=== PATIENT | male | born 1960 | race Caucasian/White ===

== ENCOUNTER → 2020-01-22 11:30 | Outpatient (CLI) | payer BC, SELFPAY ==
--- NOTE | ~2020-01-22 | XR_ITS ---
EXAMINATION: XR patella RT, XR knee RT min 4V DATE: 01/22/2020 11:54 INDICATION: Right knee pain TECHNIQUE: 1. Weight bearing anteroposterior and Mccracken, sunrise, and flexed lateral views of the right knee were obtained 2. Frontal view of the right patella was obtained. COMPARISON: None. FINDINGS: Alignment is normal. No fracture. Joint spaces are normal. No osteophytosis, erosions, osteonecrosis or other cortical irregularity's. No joint effusion/layering lipohemarthrosis. Soft tissues are unre markable. IMPRESSION: 1. Normal right knee and patella radiographs. Reviewed, dictated and finalized at location A. IMPRESSION: 1. Normal right knee and patella radiographs.
== END ==
PROVIDERS: PCP Internal Medicine; Visit Provider Internal Medicine
DX: M25.561 Pain in right knee (principal)
CPT/HCPCS: 73560; 73564

== ENCOUNTER 2020-03-18 07:40 | Outpatient (RCR) | payer BC, SELFPAY ==
--- NOTE | 2020-03-18 07:51 | PTOPEVAL ---
Thank you for referring Armando Martinez to [facility].? The patient is scheduled to be seen for therapy? ____x/week for ___ weeks. Please review, sign, date and return this plan of care RUBIO. I agree with and certify that the following plan of care is medically necessary. Referring Physician Date Admitting Provider: Attending Provider: Seun Hector MD Referring Provider: *PT Outpatient Evaluation Start: 03/18/20 07:10 Freq: Status: Active Protocol: Document 03/18/20 07:10 Disha (Rec: 03/18/20 07:51 [facility] [id number]) Therapy Assessment Status Assessment Status Assessment Status Evaluation Evaluation Information Problem Diagnosis R knee pain, pes anserine/ patellar bursitis Onset 03/17/20 Subjective Information patient reports pain in the R Query Text:As Reported By Patient/ knee for several years on and Family off. he reports lately he has had more pain than usual. he reports he had x-rays taken back in january. he reports he saw an ortho yesterday. he reports he had an injection to the R knee. he reports he has increased pain in the R knee with keneling on the knee. he reports he also has increased pain with stepping onto a stool or step. 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 Prior Level of Function Comments Additional Prior Level of Function patient reports he has been Comments getting worse for a few months now. he reports increased aching in the r knee. Pain Assessment Timing of Pain Assessment Timing of Pain Assessment Assessment Pain Scale Pain Scale Used Numeric (1 - 10) Self Report Pain Assessment Right Knee(s) Reported Pain Level 3 Pain Frequency Acute,Chronic,Continuous Lowest Pain Intensity 2 Greatest Pain Intensity 10 Pain Score Pain Score 3: Self Report Additional Pain Score Comments patient reports soreness since his injection yesterday. Interventions Used Interventions Used By Clinicians Activity or ADL's,Education, Exercise,Manual Therapy Techniques Lower Extremity Range of Motion Knee Range of Motion Bilateral Knee Flexion Range of Motion - Active 140 Knee Extension Range of Motion - Active 0
== END 2020-04-17 08:33 | disposition home or self-care (01) ==
LOC: CHSPT 07:40
PROVIDERS: Visit Provider Orthopaedic Surgery
DX: M76.891 Other specified enthesopathies of right lower limb, excluding foot (principal)
CPT/HCPCS: 97014; 97035; 97110; 97140; 97161; 97530; 97542; G0283

== ENCOUNTER 2020-04-20 14:14 | Outpatient (CLI) | payer BC, SELFPAY ==
[2020-04-20 15:25] LABS: SARS-CoV-2 Ag Positive (Negative)
== END 2020-04-20 14:15 | disposition home or self-care (01) ==
LOC: CHSLAB 14:16
PROVIDERS: PCP Internal Medicine; Visit Provider Internal Medicine
DX: U07.1 COVID-19 (principal)
CPT/HCPCS: 87426

== ENCOUNTER 2021-01-29 00:52 | Day surgery (SDC) | payer BC, SELFPAY ==
[2021-01-19 10:29] VITALS: BMI 26.6
[2021-01-29 06:23] VITALS: BP 127/79; PULSE 58; RESP 21; TEMP 36.3; O2SAT 99; BMI 26.8
[2021-01-29] MEDS: LACTATED RINGERS 1,000 ML 150 ML IV CONT (06:36)
--- NOTE | 2021-01-29 07:22 | P.PNAN_ITS ---
Anes - Initial Pre Proc Eval Procedure: Operation Date: 01/29/21 07:30 Proposed Procedures p Screening Colonoscopy - Dougie Rivera MD Date/Time: 01/29/21 07:22 Surgeon: Dougie Rivera MD Pre Op Diagnosis: neoplasm screening Patient Data Age: 60 Gender: M Height: 1.75 m Weight: 82.4 kg Last Vital Signs Temp 97.3 F L 01/29/21 06:23 Pulse 58 L 01/29/21 06:23 Resp 21 H 01/29/21 06:23 BP 127/79 01/29/21 06:23 Pulse Ox 99 01/29/21 06:23 Allergies Allergy/AdvReac Type Severity Reaction Status Date / Time No Known Allergies Allergy Verified 01/19/21 10:28 Home Medications Medication Instructions Recorded Confirmed Type aspirin 81 mg tablet,delayed 81 mg PO DAILY #30 tablet 05/20/19 01/19/21 Rx release atorvastatin 40 mg tablet 40 mg PO DAILY 90 Days #90 tablet 11/12/20 01/19/21 Rx propylthiouracil 50 mg tablet 50 mg RECTAL BID 90 Days #180 11/12/20 01/19/21 Rx tablet telmisartan 40 mg tablet 40 mg PO DAILY 90 Days #90 tablet 11/12/20 01/19/21 Rx Patient hx anesthesia problems: none Family hx anesthesia problems: none Results Review: All pre-operative results and documents have been reviewed as part of the pre-operative evaluation. FORMERLY [facility], [facility]–1983 Past Medical History Medical History (Updated 11/12/20 @ 15:02 by Dot Salgado DO) Essential (primary) hypertension Hyperthyroidism Routine adult health maintenance Vision abnormalities Family History Family History Father Family history of malignant neoplasm Alcoholic Mother Family history of type 2 diabetes mellitus Hypertension Sibling Alcoholic Hypertension Depression Son Multiple sclerosis Other Diabetes mellitus Family history of arthritis Social History Social History Years smoked: 20 Smoking status: Former smoker Tobacco type: cigarettes Second hand tobacco smoke exposure: No Smoking end date: 05/08/12 Alcohol intake: current Drinks per week: 4 Alcohol use details: beer Substance use: never Substance use type: does not use Living arrangements: with family Gender identity (if verbalized by the patient): Male Spiritual care concerns: No Agree to blood products: Yes Anes - Eval Final PreProcedure Day of Procedure 01/29/21 07:22 Patient weight: overweight Heart: regular rate and rhythm Lungs: clear to auscultation Airway: Mallampati scale class II Neurological: alert and oriented Last oral intake: >/= 8 hours ASA classification: II Emergent: no Anesthetic plan: proceed Anesthesia type and monitoring: general GIVS and standard monitoring Results Review: All pre-operative results and documents have been reviewed as part of the pre-operative evaluation. Informed Consent: The patient's anesthetic plan and its attendant risks and benefits were discussed with the patient/family/POA. Questions were solicited an d answers provided to the satisfaction of the patient/family/POA.
--- NOTE | 2021-01-29 07:31 | PM.HPGS ---
History of Present Illness History of Present Illness Consent: Risks, benefits, and alternatives have been discussed and questions answered. Patient agrees to proceed with procedure. Chief complaint: neoplasm screening Narrative: Armando Martinez is a 60 year old male here for first screening colonoscopy Review of Systems Constitutional: Constitutional: Denies headache(s) and Denies weakness Eyes: Eyes: Denies blurry vision ENT: Reports Normal hearing present, Denies headache(s) and Denies neck pain Cardiovascular: Cardiovascular: Denies chest pain and Denies dyspnea Respiratory: Respiratory: Denies dyspnea Gastrointestinal: Gastrointestinal: Reports no additional gastrointestinal complaints Genitourinary: Genitourinary: Denies dysuria Musculoskeletal: Musculoskeletal: Denies neck pain Integumentary/Breasts: Skin/Breast: Denies dry skin Neurologic: Reports Normal hearing present, Denies headache(s) and Denies weakness Psychiatric: Psychiatric: Denies anxiety Endocrine: Endocrine: Denies change in body appearance Hematologic/Lymphatic: Hematologic/Lymphatic: Denies easy bleeding Allergic/Immunologic: Allergic/Immunologic: Denies urticaria PMF Past Medical History Medical History (Updated 11/12/20 @ 15:02 by Dot Salgado DO) Essential (primary) hypertension Hyperthyroidism Routine adult health maintenance Vision abnormalities Family History Family History Father Family history of malignant neoplasm Alcoholic Mother Family history of type 2 diabetes mellitus Hypertension Sibling Alcoholic Hypertension Depression Son Multiple sclerosis Other Diabetes mellitus Family history of arthritis Social History Social History Years smoked: 20 Smoking status: Former smoker Tobacco type: cigarettes Second hand tobacco smoke exposure: No Smoking end date: 05/08/12 Alcohol intake: current Drinks per week: 4 Alcohol use details: beer Substance use: never Substance use type: does not use Living arrangements: with family Gender identity (if verbalized by the patient): Male Spiritual care concerns: No Agree to blood products: Yes Meds Home Medications and Allergies Home Medications Medication Instructions Recorded Confirmed Type aspirin 81 mg tablet,delayed 81 mg PO DAILY #30 tablet 05/20/19 01/19/21 Rx release atorvastatin 40 mg tablet 40 mg PO DAILY 90 Days #90 tablet 11/12/20 01/19/21 Rx propylthiouracil 50 mg tablet 50 mg RECTAL BID 90 Days #180 11/12/20 01/19/21 Rx tablet telmisartan 40 mg tablet 40 mg PO DAILY 90 Days #90 tablet 11/12/20 01/19/21 Rx Allergies Allergy/AdvReac Type Severity Reaction Status Date / Time No Known Allergies Allergy Verified 01/19/21 10:28 Vital Signs Vital Signs - 24 hr 01/29/21 06:23 Temperature 97.3 F L Pulse Rate 58 L Respiratory Rate 21 H Blood Pressure 127/79 Pulse Oximetry 99 Exam Const: General: comfortable and no acute distress HENMT: General nose exam: Normal nares present Eyes: General: appearance normal, both eyes and all related structures Neck: Neck: no JVD Resp: Auscultation: clear to auscultation bilaterally Cardio: Rate: regular rate Rhythm: regular rhythm GI: Inspection: non-distended GI Palp: Yes Soft to palpation Skin: General skin exam: normal color Neuro: General: gait normal Speech: normal speech Extrem: General: normal to inspection Psych: Mental Status: mental status grossly normal Assessment and Plan Assessment and plan (1) Screening for colon cancer: Code(s): Z12.11 - Encounter for screening for malignant neoplasm of colon Status: Acute Assessment and Plan: colonoscopy
[2021-01-29 07:48] VITALS: BP 99/66; PULSE 60; RESP 18; O2SAT 98
[2021-01-29 07:58] VITALS: BP 108/75; PULSE 60; RESP 22; O2SAT 96
[2021-01-29 08:09] VITALS: BP 122/84; PULSE 70; RESP 21; O2SAT 98
== END 2021-01-29 08:22 | disposition home or self-care (01) ==
PROVIDERS: PCP Family Medicine; Visit Provider Internal Medicine Gastroenterology
PROC: 0DJD8ZZ Inspection of Lower Intestinal Tract, Via Natural or Artificial Opening Endoscopic (ICD-10-PCS; CPT 45378; principal; 2021-01-29 07:30)
DX: Z12.11 Encounter for screening for malignant neoplasm of colon (principal); D12.2 Benign neoplasm of ascending colon; K64.8 Other hemorrhoids; I10 Essential (primary) hypertension; E05.90 Thyrotoxicosis, unspecified without thyrotoxic crisis or storm; Z87.891 Personal history of nicotine dependence; Z79.82 Long term (current) use of aspirin
CPT/HCPCS: 45385; 88305; J2704; J7120

== ENCOUNTER 2021-04-15 05:37 | Emergency (ER) | payer BC, SELFPAY ==
[2021-04-15 05:50] VITALS: BP 149/87; PULSE 61; RESP 18; TEMP 35.7; O2SAT 99
--- NOTE | 2021-04-15 05:57 | ED.GENADULT ---
HPI - General Adult General Chief complaint: Abdominal Pain Stated complaint: abd pain Source: patient Mode of arrival: ambulatory History of Present Illness HPI narrative: Armando is a 60M with a PMH of HLD, HTN and Hypothyroidism that presented to the ER with abdominal pain that started yesterday. It is a strong epigastric cramping that is worse with eating but does not radiate. He had one episode of non-bloody vomiting after eating. Last BM was yesterday and was normal. There is no diarrhea. No CP, SOB, fevers, or chills. Related Data Home Medications Medication Instructions Recorded Confirmed atorvastatin 40 mg PO DAILY 04/15/21 04/15/21 levothyroxine 88 mcg PO DAILY 04/15/21 04/15/21 Allergies Allergy/AdvReac Type Severity Reaction Status Date / Time No Known Allergies Allergy Verified 01/19/21 10:28 Review of Systems Constitutional: Constitutional: Reports no additional constitutional complaints Eyes: Eyes: Reports no additional eye complaints ENT: Reports system reviewed and no additional complaints, except as documented Cardiovascular: Cardiovascular: Reports no additional cardiovascular complaints Respiratory: Respiratory: Reports no additional respiratory complaints Gastrointestinal: Gastrointestinal: Reports as per HPI Genitourinary: Genitourinary: Denies hematuria, Reports oliguria and Denies dysuria Musculoskeletal: Musculoskeletal: Reports no additional musculoskeletal complaints Integumentary/Breasts: Skin/Breast: Reports system reviewed and no additional complaints, except as docu Neurologic: Reports system reviewed and no additional complaints, except as documented Psychiatric: Psychiatric: Reports no additional psychiatric complaints Endocrine: Endocrine: Reports no additional endocrine complaints Hematologic/Lymphatic: Hematologic/Lymphatic: Reports no additional hematologic/lymphatic complaints Allergic/Immunologic: Allergic/Immunologic: Reports no additional allergic/immunologic complaints [facility] Past Medical History Medical History Essential (primary) hypertension Hyperthyroidism Routine adult health maintenance Vision abnormalities Family History Family History Father Family history of malignant neoplasm Alcoholic Mother Family history of type 2 diabetes mellitus Hypertension Sibling Alcoholic Hypertension Depression Son Multiple sclerosis Other Diabetes mellitus Family history of arthritis Social History Social History Years smoked: 20 Smoking status: Former smoker Tobacco type: cigarettes Second hand tobacco smoke exposure: No Smoking end date: 05/08/12 Alcohol intake: current Drinks per week: 4 Alcohol use details: beer Substance use: never Substance use type: does not use Gender identity (if verbalized by the patient): Male Spiritual care concerns: No Agree to blood products: Yes Exam Const: General: no acute distress and alert Orientation/consciousness: patient oriented x3 Limitations: No altered mental status HENMT: Head: normal to inspection Other: normocephalic, atraumatic Eyes: Conjunctivae: conjunctivae normal Pupils: Equal, round and reactive pupils present Neck: Neck: normal visual inspection Chest: Chest palpation & inspection: normal inspection of the chest Resp: Effort & Inspection: normal respiratory effort Auscultation: clear to auscultation bilaterally Cardio: Rate: regular rate Rhythm: regular rhythm Heart sounds: no murmurs GI: Inspection: distended GI Palp: Yes Soft to palpation, Yes Tenderness to palpation present (GI) (Most TTP in the epigastric region), No Guarding due to palpation present (GI), No Rigid due to palpation and No Rebound tenderness present Other: Negative Bobby, Obturator, and psoas sig
[2021-04-15] MEDS: LACTATED RINGERS 1,000 ML 999 ML IV CONT (06:05)
[2021-04-15 06:30] VITALS: BP 150/81; PULSE 69; RESP 18; O2SAT 98
[2021-04-15 06:43] LABS: Basophils Absolute Auto 0.02 K/mm3 (0.00-0.10); Basophils Percent Auto 0.3 % (0.0-1.0); Eosinophils Absolute Auto 0.07 K/mm3 (0.02-0.50); Hematocrit 37.4 % (40.0-54.0); Hemoglobin 12.4 g/dL (14.0-18.0); Immature Granulocyte Absolute 0.03 K/mm3 (0.00-0.00); Immature Granulocyte Percent A 0.4 % (0.0-0.0); Lymphocytes Absolute Auto 0.79 K/mm3 (1.10-4.50); Lymphocytes Percent Auto 11.5 % (18.0-42.0); Mean Corpuscular HGB Conc 33.2 g/dL (32.0-36.0); Mean Corpuscular Hemoglobin 30.6 pg (27.0-31.0); Mean Corpuscular Volume 92.3 fL (78.0-102.0); Mean Platelet Volume 10.2 fl (8.7-11.0); Monocytes Absolute Auto 0.63 K/mm3 (0.10-0.90); Monocytes Percent Auto 9.2 % (2.0-11.0); Neutrophils Absolute Auto 5.3 K/mm3 (1.7-7.2); Neutrophils Percent Auto 77.6 % (50.0-70.0); Platelet Count Result 167 K/mm3 (150-420); Red Blood Count 4.05 M/mm3 (4.70-6.10); Red Cell Distribution Width 12.5 % (11.6-14.4); White Blood Count 6.9 K/mm3 (4.8-10.8)
[2021-04-15 06:58] LABS: Alanine Aminotransferase 38 U/L (16-63); Albumin Level 3.1 g/dL (3.4-5.0); Alkaline Phosphatase 69 U/L (46-116); Anion Gap 9 mmol/L (8-16); Aspartate Amino Transferase 13 U/L (15-37); Bilirubin,Total 1.5 mg/dL (0.00-1.00); Blood Urea Nitrogen 22 mg/dL (7-18); Calcium 8.6 mg/dL (8.5-10.1); Carbon Dioxide 28 mmol/L (21-32); Chloride 106 mmol/L (98-108); Estimated CRCL calculation 81 ml/min; Estimated Glomerular Filt Rate > 60; Glucose 120 mg/dL (70-99); Lipase 76 U/L (73-393); Osmolality Calculated 300 mOsm/kg (285-295); Potassium 4.3 mmol/L (3.5-5.1); Sodium 143 mmol/L (136-145); Total Protein 6.4 g/dL (6.4-8.2)
[2021-04-15 06:58] LABS: Appearance Urine Clear (Clear); Bilirubin Urine Negative (Negative); Color Urine Yellow (Yellow); Glucose Urine UA Negative (Negative); Ketones Urine Negative (Negative); Leukocyte Esterase Ur Negative (Negative); Nitrate Urine Negative (Negative); Protein Urine Trace (Negative); Specific Grav Ur >= 1.030 (1.010-1.020); Urobilinogen Urine 0.2 mg/dL (0.2-1.0); pH Urine 5.5 (5.0-8.0)
[2021-04-15 07:03] LABS: Lactic Acid Reflex 1.3 mmol/L (0.4-2.0); Prothrombin Time 10.9 Seconds (9.50-12.10)
[2021-04-15 07:04] LABS: Add Urine Microscopic? YES; Bacteria Urine Trace /hpf; Blood Urine Trace-Intact (Negative); RBC Urine 0-2 /hpf (0-2); Squamous Epithelial Cell Urine Rare /hpf (Few)
[2021-04-15 07:05] LABS: Mucus Urine Moderate /lpf
[2021-04-15 07:16] LABS: CRP 4.6 mg/dL (0.0-0.9)
[2021-04-15 08:05] VITALS: BP 157/84; PULSE 59; RESP 18; TEMP 36.8; O2SAT 98
== END 2021-04-15 08:12 | disposition home or self-care (01) ==
PROVIDERS: Emergency Provider Family Medicine; PCP Family Medicine
DX: R10.9 Unspecified abdominal pain (principal)
CPT/HCPCS: 36415; 80053; 81001; 83605; 83690; 85025; 85610; 86140; 96360; 99283; J7120

== ENCOUNTER 2021-04-29 07:16 | Outpatient (CLI) | payer BC, SELFPAY ==
--- NOTE | ~2021-04-29 | US_ITS ---
US abdomen complete EXAMINATION: US Abdomen Complete INDICATION: Abnormal liver function tests. PROCEDURE: Realtime High Resolution abdomen ultrasound. COMPARISON: No prior studies for comparison FINDINGS: Gallbladder within normal limits. No gallstones, pericholecystic fluid, gallbladder wall t hickening or biliary dilatation. Common bile duct measures 2 mm. Liver echotexture is increased, consistent with fatty infiltration. Pancreas within normal limits. Pancreatic tail is obscured by bowel gas. Spleen is unremarkeable. Renal echotexture is within [place] l limits bilaterally without hydronephrosis, contour deforming mass or renal stone. Right kidney melba ures 10.9 cm. Left kidney measures 10.5 cm. Visualized aspects of the aorta and IVC are within normal limits. Portal vein is patent. No sonograph ic Bobby's sign indicated by the technologist. IMPRESSION: 1: Hepatic steatosis. Reviewed, dictated and finalized at location A. [employer] IMPRESSION: 1: Hepatic steatosis.
== END 2021-04-29 07:17 | disposition home or self-care (01) ==
LOC: CHSIMG 07:17
PROVIDERS: PCP Family Medicine; Visit Provider Family Medicine
DX: R94.5 Abnormal results of liver function studies (principal); R10.9 Unspecified abdominal pain
CPT/HCPCS: 76700

== ENCOUNTER 2021-11-18 07:11 | Outpatient (CLI) | payer BC, SELFPAY ==
--- NOTE | ~2021-11-18 | XR_ITS ---
XR chest 2V DATE: 11/18/2021 07:39 INDICATION: Shortness of breath for 2 months. Former smoker. TECHNIQUE: 2 views COMPARISON: 10/07/2014 2 view chest FINDINGS: Normal heart size. No hilar or mediastinal enlargement. No pulmonary infiltrate or consolidation, pleural effusion or pulmonary vascular congestion or pneumo thorax is detected. IMPRESSION: No active cardiopulmonary disease Reviewed, dictated and finalized at location A.
== END 2021-11-18 07:12 | disposition home or self-care (01) ==
LOC: CHSIMG 07:12
PROVIDERS: PCP Family Medicine; Visit Provider Family Medicine
DX: R06.09 Other forms of dyspnea (principal)
CPT/HCPCS: 71046

== ENCOUNTER 2021-12-16 09:08 | Outpatient (CLI) | payer BC, SELFPAY ==
--- NOTE | 2021-12-16 09:26 | EST_ITS ---
Patient Info Name: Armando Martinez Age: 61 years : 1960 Gender: Male Ht: 69 in Wt: 190 lbs BSA: 2.07 m2 HR: 58 bpm BP: 162 / 83 mmHg Technical Quality: Good Exam Date: 12/16/2021 9:57 AM Exam Location: [facility] Patient Status: Outpatient Admit Date: 12/16/2021 Staff Ordering Physician: Dot Salgado DO Life Skills Specialist: Melanie Gann RDCS Attending Provider: DR. GARCIA Referring Physician: Naomi ARAMBULA; Exercise Technologist: Tiffanie Ewing CT Exercise Physician: Axel Garcia DO Exam Type: CA stress echo Study Info Indications - dyspnea Treadmill exercise stress echocardiogram is performed. Summary 1. 1. Abnormal Fransisco exercise stress test for ischemic ST changes by ECG criteria. 2. 2. Reduced functional capacity, achieving 8 METs of workload. 3. 3. Baseline hypertension. 4. 4. Appropriate HR response to exercise. 5. 5. Appropriate HR recovery at 1 minute post exercise. 6. 6. Abnormal stress echocardiogram for ischemia by wall motion analysis suggesting stenosis of left circumflex distribution. 7. 7. Patient and ordering PCP informed of the above results. Stress Echo Findings Left Ventricle Basal to mid posterior wall with severe hypokinesis in parasternal images. Other wall segments with normal contractility with systole. Left Ventricle Normal LV systolic function, no wall motion abnormality. Protocol: [place] Stress ECG Details Stage: REST Duration (min): 5 min : 11 sec Speed (mph): 0.0 Grade (%): 0 HR (bpm): 60 SBP (mmHg): 162 DBP (mmHg): 83 METS: --- Stage: REST Duration (min): 21 min : 47 sec Speed (mph): 0.0 Grade (%): 0 HR (bpm): 61 SBP (mmHg): 162 DBP (mmHg): 83 METS: --- Stage: STAGE 1 Duration (min): 1 min : 0 sec Speed (mph): 1.7 Grade (%): 10 HR (bpm): 86 SBP (mmHg): 162 DBP (mmHg): 83 METS: --- Stage: STAGE 1 Duration (min): 2 min : 0 sec Speed (mph): 1.7 Grade (%): 10 HR (bpm): 105 SBP (mmHg): 162 DBP (mmHg): 83 METS: --- Stage: STAGE 1 Duration (min): 3 min : 0 sec Speed (mph): 1.7 Grade (%): 10 HR (bpm): 107 SBP (mmHg): 202 DBP (mmHg): 79 METS: --- Stage: STAGE 2 Duration (min): 1 min : 0 sec Speed (mph): 2.5 Grade (%): 12 HR (bpm): 111 SBP (mmHg): 202 DBP (mmHg): 79 METS: --- Stage: STAGE 2 Duration (min): 1 min : 38 sec Speed (mph): 2.5 Grade (%): 12 HR (bpm): 114 SBP (mmHg): 202 DBP (mmHg): 79 METS: --- Stage: STAGE 2 Duration (min): 2 min : 0 sec Speed (mph): 2.5 Grade (%): 12 HR (bpm): 119 SBP (mmHg): 192 DBP (mmHg): 90 METS: --- Stage: STAGE 2 Duration (min): 3 min : 0 sec Speed (mph): 2.5 Grade (%): 12 HR (bpm): 118 SBP (mmHg): 192 DBP (mmHg): 90 METS: --- Stage: STAGE 3 Duration (min): 0 min : 56 sec Speed (mph): 0.0 Grade (%): 0 HR (bpm): 127 SBP (mmHg): 198 DBP (mmHg): 92 MET
== END 2021-12-16 09:09 | disposition home or self-care (01) ==
LOC: ANHCARD 09:10
PROVIDERS: PCP Family Medicine; Visit Provider Family Medicine
DX: E78.2 Mixed hyperlipidemia (principal); I10 Essential (primary) hypertension; R06.09 Other forms of dyspnea; R93.1 Abnormal findings on diagnostic imaging of heart and coronary circulation
CPT/HCPCS: 93351

== ENCOUNTER 2021-12-27 00:40 | Day surgery (SDC) | payer BC, SELFPAY ==
[2021-12-24 12:35] VITALS: BMI 27.9
[2021-12-27] VITALS (10 sets, daily range): BP systolic 141–155; BP diastolic 79–103; PULSE 47–63; RESP 12–19; TEMP 36.5–36.8; O2SAT 96–99; BMI 28.6
[2021-12-27 07:34] LABS: Basophils Percent Auto 0.6 % (0.2-1.2); Eosinophils Absolute Auto 0.3 K/mm3 (0-0.3); Eosinophils Percent Auto 4.4 % (0-4.4); Hematocrit 40.4 % (42.0-52.0); Hemoglobin 13.6 g/dL (14.0-18.0); Immature Granulocyte Absolute 0.02 K/mm3 (0.00-0.031); Immature Granulocyte Percent A 0.3 % (0-0.5); Lymphocytes Absolute Auto 1.52 K/mm3 (0.9-3.2); Lymphocytes Percent Auto 23.1 % (18.3-44.2); Mean Corpuscular HGB Conc 33.7 g/dl (32-36); Mean Corpuscular Hemoglobin 30.7 pg (26-34); Mean Corpuscular Volume 91.2 fl (80-100); Mean Platelet Volume 10.7 fl (7.4-10.4); Monocytes Absolute Auto 0.5 K/mm3 (0.1-0.6); Monocytes Percent Auto 7.6 % (2.6-8.5); Neutrophils Absolute Auto 4.2 K/mm3 (1.3-6.7); Platelet Count Result 221 k/mm3 (150-375); Red Blood Count 4.43 M/mm3 (4.6-6.20); White Blood Count 6.6 K/mm3 (4.5-10.0)
[2021-12-27] MEDS: SODIUM CHLORIDE 0.9% IV 500 ML 100 ML IV CONT (07:34)
[2021-12-27 07:50] LABS: Anion Gap 8 mmol/L (8-16); Blood Urea Nitrogen 19 mg/dL (9-20); Carbon Dioxide 28 mmol/L (22-30); Chloride 105 mmol/L (98-107); Estimated CRCL calculation 74 ml/min; Estimated Glomerular Filt Rate > 60; Glucose 118 mg/dL (65-110); Potassium 4.2 mmol/L (3.4-5.0); Sodium 141 mmol/L (137-145)
[2021-12-27 08:12] LABS: INR 0.9; Prothrombin Time 11.7 Seconds (11.1-14.7)
--- NOTE | 2021-12-27 08:22 | WPDMODSED ---
Moderate Sedation Note-Pt Data Patient Data Diagnosis: Abnormal stress test Exertional dyspnea Present Complaint: MILNER Procedure to be performed/Plan: Left heart catheterization Allergies Allergy/AdvReac Type Severity Reaction Status Date / Time No Known Allergies Allergy Verified 12/27/21 07:22 Home Medications Medication Instructions Recorded Confirmed Type aspirin 81 mg tablet,delayed 81 mg PO DAILY #30 tabs 05/20/19 12/27/21 Rx release telmisartan 40 mg tablet 40 mg PO DAILY 90 days #90 tabs 07/26/21 12/27/21 Rx propylthiouracil 50 mg tablet 50 mg RECTAL BID #180 tabs 10/21/21 12/27/21 Rx pantoprazole 40 mg tablet,delayed 40 mg PO QAM #90 tabs 11/15/21 12/27/21 Rx release (Protonix) atorvastatin 80 mg tablet 80 mg PO DAILY #30 tabs 12/16/21 12/27/21 Rx Current Medications: Active Medications Sodium Chloride (Normal Saline Iv) 500 mls @ 100 mls/hr IV CONT .Q5H MITCHELL Last Admin: 12/27/21 07:34 Dose: 100 mls/hr Sedation/Anesthesia: No previous sedation/anesthesia problems (including family history). [facility] Past Medical History Medical History Essential (primary) hypertension Hyperthyroidism Routine adult health maintenance Vision abnormalities Family History Family History Father Family history of malignant neoplasm Alcoholic Mother Family history of type 2 diabetes mellitus Hypertension Sibling Alcoholic Hypertension Depression Son Multiple sclerosis Other Diabetes mellitus Family history of arthritis Social History Social History Years smoked: 20 Smoking status: Former smoker Tobacco type: cigarettes Second hand tobacco smoke exposure: No Smoking end date: 05/08/12 Alcohol intake: current Drinks per week: 4 Alcohol use details: beer Substance use: never Substance use type: does not use Living arrangements: with family Gender identity (if verbalized by the patient): Male Spiritual care concerns: No Agree to blood products: Yes Mod Sed Physical Exam Physical Exam Pre Procedural Exam: Normal: Appearance, Neck, Throat, Airway, Lungs, Heart Size, Heart Rate, Heart Rhythm, Neuro Exam, Abdomen and Extremities Hours since solid foods: 12 Hours since liquid intake: 12 Mallampati Classification: class II Internal Medicine - PN: Obj Da Vital Signs Vital Signs: Vital Signs - 24 hr 12/27/21 07:28 Temperature 36.8 C Respiratory Rate 17 Blood Pressure 146/94 H Pulse Oximetry 97 Oxygen Delivery Room Air Meds/Results Medications: Active Medications Generic Name Dose Route Start Last Admin Trade Name Freq PRN Reason Stop Dose Admin Sodium Chloride 500 mls @ 100 mls/hr 12/23/21 07:10 12/27/21 07:34 Normal Saline Iv IV CONT 100 mls/hr .Q5H MITCHELL Administration Labs CBC & Chem 7: 12/27/21 07:25 12/27/21 07:25 Labs: Laboratory Results - last 24 hr 12/27/21 12/27/21 12/27/21 07:25 07:25 07:25 WBC 6.6 RBC 4.43 L Hgb 13.6 L Hct 40.4 L MCV 91.2 MCH 30.7 MCHC 33.7 RDW 13.0 Plt Count 221 MPV 10.7 H Immature Gran % (Auto) 0.3 Neut % (Auto) 64.0 Lymph % (Auto) 23.1 [place] % (Auto) 7.6 Eos % (Auto) 4.4 Baso % (Auto) 0.6 Lymph # (Auto) 1.52 [place] # (Auto) 0.5 Eos # (Auto) 0.3 Baso # (Auto) 0.0 Abs Immat Gran (auto) 0.02 Absolute Neuts (auto) 4.2 Absolute Nucleated RBC 0.0 Nucleated RBC % 0.0 PT 11.7 INR 0.9 Sodium 141 Potassium 4.2 Chloride 105 Carbon Dioxide 28 Anion Gap 8 BUN 19 Creatinine 0.90 Estim Creat Clear Calc 74 Estimated GFR > 60 Glucose 118 H Calcium 9.0 ASA Classification/Sedation ASA Classification/Sedation ASA Class: II Emergent: No Risks: Risks, benefits a
--- NOTE | 2021-12-27 08:24 | SUR.PREOP ---
Dr. Farley at bedside talking with patient and his regarding cardiac catheterization procedure.
--- NOTE | 2021-12-27 09:07 | P.PCNCC_ITS ---
Cardiac Cath Procedure Note Date of procedure:: 12/27/21 Performing physician:: Aniceto Farley MD Indication:: Abnormal stress test exertional dyspnea Brief clinical history:: this is a 61-year-old patient without prior history of coronary disease. He was referred for evaluation of exertional dyspnea and a stress echocardiogram was felt to be abnormal. Procedure Procedure performed:: left ventriculogram coronary angiogram Angio-Seal to right femoral artery Sedation/Medication given:: fentanyl 50 mg Versed 2 mg case start time 8:44 a.m. case end time 9:00 a.m. Access site:: right femoral artery Estimated blood loss:: 20 cc Procedure note:: patient was brought to the cardiac catheterization lab in the postabsorptive state the right femoral triangle was prepared and draped in normal fashion. Anesthesia was provided with 1% lidocaine infiltrated locally. Using the modified Seldinger technique a 5 [place] sheath was placed into the right femoral artery. After this left heart catheterization was carried out. I used a 5 [place] angled pigtail catheter to measure left-sided hemodynamics, pullback pressures across the aortic valve and inject the left ventriculogram in the ROMERO projection. Following this I used standard 5 [place] FL4 catheter to engage and inject the left coronary artery. Then I used a 5 [place] JR4 catheter to engage and inject the right coronary artery. The cineangiograms were then reviewed and the case was terminated. An angiogram was done of the femoral artery through the sheath after which an Angio-Seal device was deployed with a good hemostatic result. 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 Findings:: Hemodynamics: Central aortic pressure was 164 over 82 left ventricle 164 over 8 end-diastolic pressure 24. No gradient on pullback across the aortic valve. Left ventricle: The LV is normal size systolic contractility is nicely preserved in all segments the global ejection fraction visually estimated to be 65%. The left main coronary artery is large in caliber and widely patent left anterior descending has Mild adventitial calcifications noted proximally. the LAD however is nicely patent continues down to around the apex and also provides a significant portion of the inferior wall as well. There is minimal plaquing in the proximal LAD there is no stenosis identified. Circumflex is a moderate caliber artery giving rise to the marginal branches the circumflex system is smooth and angiographically free of disease. The right coronary artery is small in caliber and terminates in a moderate- sized RPL system. There is essentially no RPDA as described above the LAD continues down the inferior wall in this distribution. The right coronary artery has no angiographic abnormalities. Conclusion:: 1. Minimal luminal plaquing in the left anterior descending but no functionally significant coronary artery disease is identified. 2. Long LAD which also provides significant supply to the inferior wall. 3. Normal left ventricular systolic function 4. Angio-Seal to right femoral artery Aniceto Farley MD [facility]
--- NOTE | 2021-12-27 10:24 | SUR.PHASEII ---
spoke with SUSANA Wolff at Dr. Carbone's office. Patient's appt has been moved from 01/17/22 at [place] location to Monday01/04/22 at 930 at [facility] Location. Patient and were made aware and were agreeable to appointment date/location change.
--- NOTE | 2021-12-27 10:34 | SUR.PHASEII ---
Patient ate 100% of meal tray. Discussed post cath IV fluids with patient which were held to start while patient was eating as IV is ac location. Patient encouraged to push PO fluids.
[2021-12-27] MEDS: SODIUM CHLORIDE 0.9% IV 1,000 ML 125 ML IV CONT (10:42)
--- NOTE | 2021-12-27 12:29 | SUR.PHASEII ---
1220 patient was escorted out to private vehicle via wheelchair in stable condition and right groin cath site dressing c/d/i, site soft, nontender and groin site was also assessed by (who is a nurse) for notation of baseline at discharge. Patient's vital signs stable and patient had no complaints. Discharge instructions were reviewed with patient and and education handouts provided. Angioseal card provided. They verbalized understanding and had no further questions. They have follow up with Dr. Carbone 01/04/22.
== END 2021-12-27 12:20 | disposition home or self-care (01) ==
PROVIDERS: PCP Family Medicine; Visit Provider Specialist
PROC: 4A023N7 Measurement of Cardiac Sampling and Pressure, Left Heart, Percutaneous Approach (ICD-10-PCS; CPT 93452; principal; 2021-12-27 08:30)
DX: I25.10 Atherosclerotic heart disease of native coronary artery without angina pectoris (principal); R06.00 Dyspnea, unspecified; Z79.82 Long term (current) use of aspirin; I10 Essential (primary) hypertension; E05.90 Thyrotoxicosis, unspecified without thyrotoxic crisis or storm; Z87.891 Personal history of nicotine dependence; Z86.16 Personal history of COVID-19; R06.09 Other forms of dyspnea; E78.2 Mixed hyperlipidemia
CPT/HCPCS: 36415; 80048; 85025; 85610; 93458; C1760; C1887; C1894; G0269; J1644; J2250; J3010; J7030; J7040

== ENCOUNTER 2022-01-24 13:07 | Outpatient (CLI) | payer OTHER, SELFPAY ==
--- NOTE | 2022-01-24 13:16 | ECHO_ITS ---
Patient Info Name: Armando Martinez Age: 61 years : 1960 Gender: Male Ht: 59 in Wt: 190 lbs BSA: 1.94 m2 HR: 61 bpm BP: 147 / 95 mmHg Technical Quality: Good Exam Date: 01/24/2022 1:21 PM Exam Location: [facility] Patient Status: Outpatient Admit Date: 01/24/2022 Staff Ordering Physician: Axel Carbone DO Research Worker Kitchen: Christiano Bobby RDCS, RT Attending Provider: Axel Carbone DO Referring Physician: Raf VIGIL; Exam Type: CA echo doppler color flow Study Info Indications R06.00 - Dyspnea, unspecified Complete two-dimensional, color flow and Doppler transthoracic echocardiogram is performed. Strain analysis performed. Summary 1. Complete two-dimensional, color flow and Doppler transthoracic echocardiogram is performed. 2. Left ventricular chamber dimension is normal. 3. Mild hypokinesis of basal posterior/inferior wall. 4. Left ventricular systolic function is normal, estimated at 60-65%. 5. The left ventricular diastolic function is grade II diastolic dysfunction. 6. E/e' 7 is not elevated. 7. There is trace mitral valve regurgitation. 8. There is trace tricuspid valve regurgitation. Left Ventricle E/e' 7 is not elevated. Mild hypokinesis of basal posterior/inferior wall. Left ventricular chamber dimension is normal. Left ventricular systolic function is normal, estimated at 60-65%. The left ventricular diastolic function is grade II diastolic dysfunction. Right Ventricle Right ventricular systolic function is normal and with normal TAPSE 1.9 cm. Right ventricular chamber dimension is normal. Left Atria Left atrial chamber dimension is normal. Right Atria Right atrial chamber dimension is normal. Aortic Valve The aortic valve is trileaflet. There is no aortic valve stenosis. There is no aortic valve regurgitation. Pulmonic Valve There is no pulmonic regurgitation. Mitral Valve There is no mitral valve stenosis. There is trace mitral valve regurgitation. Tricuspid Valve There is trace tricuspid valve regurgitation. RVSP is not calculated due to an inadequate TR jet. Pericardium/Pleural There is no pericardial effusion. Inferior Vena Cava Normal inferior vena cava with >50% collapse upon inspiration consistent with normal right atrial pressure, 5 mmHg. Aorta The aortic root size at the sinus of Valsalva is normal. Left Ventricular Outflow Tract Name Value Normal LVOT 2D LVOT Diameter 2.1 cm LVOT Doppler LVOT Peak Velocity 101 cm/s LVOT Peak Gradient 4 mmHg LVOT Mean Gradient 2 mmHg LVOT VTI 19 cm LVOT VTI/AV VTI Ratio 0.7 LVOT Stroke Volume 66 ml Mitral Valve Name Value Normal MV Doppler MV Decel Mckinley 310 cm/s2
== END 2022-01-24 13:08 | disposition home or self-care (01) ==
LOC: CHSIMG 13:13
PROVIDERS: Visit Provider Internal Medicine Cardiovascular Disease
DX: R06.09 Other forms of dyspnea (principal)
CPT/HCPCS: 93306

== ENCOUNTER 2022-07-03 02:08 | Emergency (ER) | payer OTHER, SELFPAY ==
--- NOTE | ~2022-07-03 | CT_ITS ---
EXAMINATION: CT abdomen pelvis w con DATE: 07/03/2022 03:22 INDICATION: Right lower quadrant abdominal pain for 2 days TECHNIQUE: Computed tomography (CT) of the abdomen and pelvis was performed with 100 CC Omnipaque 350 intravenous contrast. Automated exposure control and iterative reconstruction technique were employe d. Exam dose: 558.95 mGy-cm total exam DLP. COMPARISON: 04/29/2021 abdominal ultrasound complete examination FINDINGS: Right greater and minor fissural nodes, most likely benign. There are 2 peripheral left low er lobe approximately 3 mm nodular densities the lung bases are clear of infiltrate or consolidation. Normal heart size. Coronary artery calcification. No pericardial or pleural effusion. The liver, gallbladder, bile ducts, spleen, pancreas, pancreatic duct are unremarkable. Small probable right adrenal adenoma. Left adrenal gland is normal. Normal caliber and atherosclerotic calcification of the abdominal aorta and iliac and femoral arterie s. No intraperitoneal or retroperitoneal or pelvic mass lesion or adenopathy or ascites. There is prostate enlargement and calcification. The urinary bladder is unremarkable. Small bilateral fat-containing inguinal hernias. Normal appendix. No bowel obstruction, bowel wall thickening, pneumatosis or intraperitoneal free air . Fat-containing umbilical hernia. Included skeletal structures are unremarkable. IMPRESSION: Normal appendix Reviewed, dictated and finalized at [facility]. Reviewed, dictated and finalized at [facility]. 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
[2022-07-03 02:10] VITALS: BP 168/87; PULSE 60; RESP 20; TEMP 36.5; O2SAT 98
--- NOTE | 2022-07-03 02:31 | ED.ABDPAIN ---
HPI - Abdominal Pain General Chief Complaint: Abdominal Pain Stated Complaint: Right sided abd pain Source: patient Mode of arrival: ambulatory Limitations: no limitations History of Present Illness HPI narrative: PATIENT IS A 61-YEAR-OLD WHITE MALE complains right lower quadrant abdominal pain that started yesterday. 12/15 started with nauseous with watery diarrhea. Thought he had intestinal flu. Pain is nonradiating he denies any problems voiding. No blood in his stool no melena. Took some ibuprofen which helped a little bit. He is on stomach medicine. Denies any headache dizziness chest pain back pain sore throat runny nose fever rash or itching bleeding or bruising problems voiding. Denies any problems eating. Denies any rash or itching. Denies any abdominal surgeries. Nothing makes the pain worse. Related Data Allergies Allergy/AdvReac Type Severity Reaction Status Date / Time No Known Allergies Allergy Verified 01/04/22 09:19 Review of Systems Constitutional: Constitutional: Reports no additional constitutional complaints Eyes: Eyes: Reports no additional eye complaints ENT: Reports system reviewed and no additional complaints, except as documented Cardiovascular: Cardiovascular: Reports no additional cardiovascular complaints Respiratory: Respiratory: Reports no additional respiratory complaints Gastrointestinal: Gastrointestinal: Reports no additional gastrointestinal complaints, Reports abdominal pain, Denies constipation, Denies heartburn, Reports diarrhea, Reports nausea and Denies vomiting Genitourinary: Genitourinary: Reports no additional male genitourinary complaints Musculoskeletal: Musculoskeletal: Reports no additional musculoskeletal complaints, Denies back pain and Denies arthralgias Integumentary/Breasts: Skin/Breast: Reports system reviewed and no additional complaints, except as docu, Denies pruritus and Denies rash Neurologic: Reports system reviewed and no additional complaints, except as documented Hematologic/Lymphatic: Hematologic/Lymphatic: Reports easy bleeding PMFSH Past Medical History Medical History Essential (primary) hypertension Hyperthyroidism Routine adult health maintenance Vision abnormalities Family History Family History Father Family history of malignant neoplasm Alcoholic Mother Family history of type 2 diabetes mellitus Hypertension Sibling Alcoholic Hypertension Depression Son Multiple sclerosis Other Diabetes mellitus Family history of arthritis Social History Social History Years smoked: 20 Smoking status: Former smoker Tobacco type: cigarettes Second hand tobacco smoke exposure: No Smoking end date: 05/08/12 Alcohol intake: current Drinks per week: 4 Alcohol use details: beer Substance use: never Substance use type: does not use Living arrangements: with family Occupation/Education: occupation Gender identity (if verbalized by the patient): Male Spiritual care concerns: No Agree to blood products: Yes Exam Const: General: healthy appearing and alert; No ill appearing Nutritional Appearance: well nourished Orientation/consciousness: patient oriented x3 Limitations: no limitations HENMT: Head: normal to inspection Ears: external ears normal Face/Nose/Sinus: Normal external nose present Face and sinus: normal facial exam Mouth: Yes Normal oral and palatal mucosa present, Yes lip normal and Yes moist mucous membranes Teeth and gingiva: dentition normal Throat: posterior oropharynx normal Eyes: Conjunctivae: conjunctivae normal Pupils: Equal, round and reactive pupils present EOM: EOMs intact bilaterally Direct Ophthalmoscopy: no photophobia Neck: Neck: normal visual inspection, no lymphadenopathy and no meningeal
[2022-07-03] MEDS: SODIUM CHLORIDE 0.9% IV 1,000 ML 999 ML IV CONT (02:33)
[2022-07-03] MEDS: fentaNYL CITRATE INJ (*CRX) 100 MCG/2 ML VIAL 50 MCG IV PUSH (02:35)
[2022-07-03] MEDS: ONDANSETRON INJ 4 MG/2 ML VIAL IV PUSH (02:35)
[2022-07-03 02:47] LABS: Basophils Absolute Auto 0.03 K/mm3 (0.00-0.10); Basophils Percent Auto 0.5 % (0.0-1.0); Eosinophils Absolute Auto 0.18 K/mm3 (0.02-0.50); Eosinophils Percent Auto 2.8 % (1.0-6.0); Hematocrit 37.6 % (40.0-54.0); Hemoglobin 12.6 g/dL (14.0-18.0); Immature Granulocyte Absolute 0.02 K/mm3 (0.00-0.00); Immature Granulocyte Percent A 0.3 % (0.0-0.0); Lymphocytes Absolute Auto 0.65 K/mm3 (1.10-4.50); Lymphocytes Percent Auto 10.1 % (18.0-42.0); Mean Corpuscular HGB Conc 33.5 g/dL (32.0-36.0); Mean Corpuscular Hemoglobin 30.5 pg (27.0-31.0); Mean Platelet Volume 9.9 fl (8.7-11.0); Monocytes Absolute Auto 0.44 K/mm3 (0.10-0.90); Monocytes Percent Auto 6.8 % (2.0-11.0); Neutrophils Absolute Auto 5.1 K/mm3 (1.7-7.2); Neutrophils Percent Auto 79.5 % (50.0-70.0); Platelet Count Result 184 K/mm3 (150-420); Red Blood Count 4.13 M/mm3 (4.70-6.10); Red Cell Distribution Width 12.7 % (11.6-14.4); White Blood Count 6.5 K/mm3 (4.8-10.8)
[2022-07-03 03:03] LABS: Alanine Aminotransferase 46 U/L (16-63); Albumin Level 3.2 g/dL (3.4-5.0); Alkaline Phosphatase 86 U/L (46-116); Anion Gap 9 mmol/L (8-16); Aspartate Amino Transferase 23 U/L (15-37); Bilirubin,Total 1.3 mg/dL (0.00-1.00); Blood Urea Nitrogen 20 mg/dL (7-18); Calcium 7.9 mg/dL (8.5-10.1); Carbon Dioxide 24 mmol/L (21-32); Chloride 108 mmol/L (98-108); Estimated CRCL calculation 74 ml/min; Estimated Glomerular Filt Rate > 60; Glucose 157 mg/dL (70-99); Lipase 30 U/L (16-77); Osmolality Calculated 297 mOsm/kg (285-295); Potassium 3.6 mmol/L (3.5-5.1); Sodium 141 mmol/L (136-145); Total Protein 6.7 g/dL (6.4-8.2); Troponin I 7.7 ng/L (0.00-60.4)
[2022-07-03 03:04] LABS: Lactic Acid Reflex 1.4 mmol/L (0.4-2.0)
[2022-07-03 03:37] LABS: Appearance Urine Clear (Clear); Bilirubin Urine Negative (Negative); Blood Urine Trace-Intact (Negative); Color Urine Light Yellow (Yellow); Glucose Urine UA Negative (Negative); Ketones Urine Negative (Negative); Leukocyte Esterase Ur Negative LEU/UL (Negative); Nitrate Urine Negative (Negative); Protein Urine Negative (Negative); Urobilinogen Urine 0.2 mg/dL (0.2-1.0)
[2022-07-03 03:42] LABS: Add Urine Microscopic? YES; RBC Urine None seen /hpf (0-2)
[2022-07-03 04:03] VITALS: BP 138/88; PULSE 65; RESP 18; O2SAT 99
--- NOTE | 2022-07-03 04:25 | PC.NURSE ---
Pt resting quietly c eyes closed, call placed to [facility] for CT report still not being back. They stated turnaround time of 1.5 hrs, and hope for report soon. ERP and pt informed on wait times for CT results. Call okeefe at pt side, he reports his pain is better.
[2022-07-03 04:41] VITALS: BP 170/94; PULSE 62; RESP 20; TEMP 36.6; O2SAT 98
== END 2022-07-03 04:50 | disposition home or self-care (01) ==
PROVIDERS: Emergency Provider Emergency Medicine
DX: K52.9 Noninfective gastroenteritis and colitis, unspecified (principal); I10 Essential (primary) hypertension; Z87.891 Personal history of nicotine dependence
CPT/HCPCS: 36415; 74177; 80053; 81001; 83605; 83690; 84484; 85025; 96361; 96374; 96375; 99284; J2405; J3010; J7030; Q9967

== ENCOUNTER 2022-09-21 07:32 | Outpatient (CLI) | payer OTHER, SELFPAY ==
--- NOTE | ~2022-09-21 | CT_ITS ---
CT Scan of the Chest without Contrast: Clinical Indication: Lung cancer screening, smoking history Technique: Contiguous sections were acquired throughout the chest without intravenous contrast. Dose reduction technique was used on this scan by utilizing automated exposure control and iterative recon struction technique. The dose-length product (DLP) was 135.46 mGy-cm. Findings: There is no evidence of any significant mediastinal, hilar or axillary lymphadenopathy. Coronary shiloh ry calcifications are present. There is no evidence of pleural or pericardial effusion. There is a 5 mm nodule along the right major fissure (axial image 61). There is a 4 mm left lower lob e pulmonary nodule (axial image 80). Images through the upper abdomen reveal no abnormalities. Impression: Lung RADS 2: Benign appearance. 12 month follow-up screening CT advised. Reviewed, dictated and finalized at [facility]. Impression: Lung RADS 2: Benign appearance. 12 month follow-up screening CT advised.
== END 2022-09-21 07:33 | disposition home or self-care (01) ==
LOC: CHSIMG 07:33
PROVIDERS: PCP Family Medicine; Visit Provider Family Medicine
DX: Z12.2 Encounter for screening for malignant neoplasm of respiratory organs (principal); Z87.891 Personal history of nicotine dependence
CPT/HCPCS: 71271

== ENCOUNTER 2024-04-03 14:59 | Outpatient (CLI) | payer MEDICARE, SELFPAY ==
--- NOTE | ~2024-04-03 | MR_ITS ---
EXAMINATION: MR lumbar spine wo con DATE: 04/03/2024 15:23 INDICATION: Low back pain and right buttock pain radiating down the right leg. TECHNIQUE: Magnetic resonance imaging (MRI) of the lumbar spine was performed without intravenous con trast. Sequences included sagittal T2-weighted FSE, sagittal T2-weighted FS FSE, sagittal T1-weighted FSE, and axial T2-weighted FSE. COMPARISON: None FINDINGS: Alignment is normal. Vertebral body heights are normal. There are small Schmorl's nodes along a few o f the endplates in the upper lumbar and lower thoracic spine. T1 hyperintense hemangioma at L1. Mild fibrofatty degenerative endplate changes along the anterior inferior endplates of T12 and L1. Marrow signal is otherwise normal. All disc desiccation throughout the lumbar and visualized lower thoracic spine. Mild disc height loss at L4-L5. The conus medullaris terminates at L2. There is normal signal in the caudal spinal cord. Paravertebral soft tissues are unremarkable. The following disc levels are specifically discussed: T12-L1: The disc does not extend beyond the endplate margin. There is mild bilateral facet joint oste oarthritis. There is no neural foraminal stenosis. There is no central canal stenosis. L1-L2: The disc does not extend beyond the endplate margin. There is mild bilateral facet joint osteo arthritis. There is no neural foraminal stenosis. There is no central canal stenosis. L2-L3: Disc is mildly bulging. There is mild bilateral facet joint osteoarthritis. There is mild bila teral neural foraminal stenosis. There is mild central canal stenosis. L3-L4: Disc is mildly bulging. There is mild bilateral facet joint osteoarthritis. There is mild bila teral neural foraminal stenosis. There is minimal central canal stenosis. L4-L5: Disc is mildly bulging. There is mild bilateral facet joint osteoarthritis. There is mild bila teral neural foraminal stenosis. There is mild central canal stenosis. L5-S1: Disc is mildly bulging. There is mild bilateral facet joint osteoarthritis. There is mild bila teral neural foraminal stenosis. There is mild central canal stenosis. IMPRESSION: 1. Mild lumbar spondylosis. Reviewed, dictated and finalized at [facility]. P MOUNTER IMPRESSION: 1. Mild lumbar spondylosis.
== END 2024-04-03 15:00 | disposition home or self-care (01) ==
LOC: GOSHIMG 14:59
PROVIDERS: PCP Family Medicine; Visit Provider Physician Assistant Surgical
DX: M76.01 Gluteal tendinitis, right hip (principal); M47.816 Spondylosis without myelopathy or radiculopathy, lumbar region
CPT/HCPCS: 72148

== ENCOUNTER 2024-04-16 10:18 | Outpatient (RCR) | payer MEDICARE, SELFPAY ==
--- NOTE | 2024-04-16 09:02 | OPREHPOC ---
Outpatient Therapy Plan of Care This is a Multidisciplinary Plan of Care that may contain components documented by all disciplines (PT, OT, and ST.) PT Problem 1 PT Problem #1 Knowledge Deficit PT Goal 1 Goal / Goal Update 1. independent and compliant with HEP Target Visit 5 PT Problem 2 PT Problem #2 Pain PT Goal 1 Goal / Goal Update 1. patient to report reduction of radicular symptoms to not passed the buttock Target Visit 5 PT Goal 2 Goal / Goal Update 1. 1/10 pain or less in the R LE and R lower back 2. no R LE radicular symptoms Target Visit 10 PT Problem 3 PT Problem #3 Impaired Strength PT Goal 1 Goal / Goal Update 1. 5/5 bilateral hip strength Target Visit 10 PT Problem 4 PT Problem #4 Impaired Flexibility PT Goal 1 Goal / Goal Update 1. 10 degrees or less tightness of the bilateral hamstrings Target Visit 10 PT Problem 5 PT Problem #5 Impaired Functional Mobility PT Goal 1 Goal / Goal Update 1. no tenderness to palpation of the R buttock 2. patient to stand and ambulate for 2 hours without increased pain/symptoms 3. patient to safely squat and lift 40lbs from floor to waist without increased symptoms. Target Visit 10
--- NOTE | 2024-04-16 09:03 | PTOPEVAL1 ---
Assessment and note entered by JT File, PT Evaluation Information Assessment Status Evaluation ICD-10 Condition Codes (PT) Pain in low back M54.50,Pain in right hip M25.551, Pain in right knee M25.561 Other ICD-10 Condition Codes ( M78.604 PT) Onset 04/08/24 Subjective Information patient reports he is having soreness in the R buttock, R knee. he reports he has been having these symptoms for months. he reports he did have an xray and mri of the back and R hip. he reports he was told they did not see much. he reports he has increased pain and symptoms with walking. he reports he does sometimes get numbness, burning, tingling down to the R foot. he reports at times he gets cramping in the R toe. Reported Pain Level Pain Score 3: Self Report Assessment PT Clinical Summary mr. murray is a 63 yo man who presents to skilled PT services for evaluation and treatment of R LE and lower back pain. he presents today with pain along the posterior R hip in the buttock and down the back of the R LE to the knee. negative special testing of the hips and knees today, but with positive R SLR test today. he displays deficits in hip strength, functional activity performance, and radicular symptoms down the R LE. continued skilled PT is indicated to improve patients objective/functional deficits and return to his prior level functional activity performance/ quality of life. Plan of Care Interventions Electrical Stimulation,Hot Pack/Cold Pack,Manual Therapy,Mechanical Traction,Neuro Re-education, Patient/Caregiver Education,Therapeutic Activities ,Therapeutic Exercise PT Services Indicated Yes Treatment Frequency and 2x weekly for 10 visits Duration These treatments will address the objective and functional deficits as defined above. The patient will be advanced safely and appropriately in order for the patient to progress towards his/her prior level of function. Additional exercises will be introduced and as well as a comprehensive home exercise program upon discharge, if needed, ?to ensure carryover of functional gains achieved in the clinic. This treatment plan has been reviewed and agreement upon by the patient.
--- NOTE | 2024-05-16 08:04 | OPREHPOC ---
Outpatient Therapy Plan of Care This is a Multidisciplinary Plan of Care that may contain components documented by all disciplines (PT, OT, and ST.) PT Problem 1 PT Problem #1 Knowledge Deficit PT Goal 1 Goal / Goal Update 1. independent and compliant with HEP Target Visit 5 Progress Met PT Problem 2 PT Problem #2 Pain PT Goal 1 Goal / Goal Update 1. patient to report reduction of radicular symptoms to not passed the buttock Target Visit 16 Progress Not Met PT Goal 2 Goal / Goal Update 1. 1/10 pain or less in the R LE and R lower back 2. no R LE radicular symptoms Target Visit 16 Progress Not Met PT Problem 3 PT Problem #3 Impaired Strength PT Goal 1 Goal / Goal Update 1. 5/5 bilateral hip strength Target Visit 16 Progress Not Met PT Problem 4 PT Problem #4 Impaired Flexibility PT Goal 1 Goal / Goal Update 1. 10 degrees or less tightness of the bilateral hamstrings 2. mild or less tightness of the bilateral piriformis mm's 3. mild or less tightness of the hip flexors 4. mild or less tightness of the ITB bilat Target Visit 16 Progress Not Met PT Problem 5 PT Problem #5 Impaired Functional Mobility PT Goal 1 Goal / Goal Update 1. no tenderness to palpation of the R buttock 2. patient to stand and ambulate for 2 hours without increased pain/symptoms 3. patient to safely squat and lift 40lbs from floor to waist without increased symptoms. Target Visit 16 Progress Not Met
--- NOTE | 2024-05-16 08:04 | PTOPREEVAL ---
Assessment and note entered by JT File, PT Evaluation Information Assessment Status Re-evaluation ICD-10 Condition Codes (PT) Pain in low back M54.50,Pain in right hip M25.551, Pain in right knee M25.561 Other ICD-10 Condition Codes ( M78.604 PT) Onset 04/08/24 Subjective Information patient reports his back feels good, but he still gets symptoms in the R buttock and down the R LE. he reports these are the most intense when driving /riding in a car. he reports he is still working, but lifting does not seem to bother or produce many symptoms. he does reports the symptoms do go down the back of the R LE to the foot. Reported Pain Level Pain Score 3: Self Report Assessment PT Clinical Summary mr. murray is a 63 yo man who presents to skilled PT for his 10th skilled therapy visit for his lower back and R LE symptoms. he continues to be limited by the R LE symptoms that radiate down the R LE from the buttock. he was noted to continue to have bilateral hip mm tightness and weakness, as well as core weakness today. continued skilled PT is indicated to address his remaining objective /functional deficits and symptoms to return to his prior level functional activity performance/ quality of life. Plan of Care Interventions Electrical Stimulation,Hot Pack/Cold Pack,Manual Therapy,Mechanical Traction,Neuro Re-education, Patient/Caregiver Education,Therapeutic Activities ,Therapeutic Exercise Other Interventions dry needling PT Services Indicated Yes Treatment Frequency and continue skilled PT 2x weekly for 6 more visits Duration These treatments will address the objective and functional deficits as defined above. The patient will be advanced safely and appropriately in order for the patient to progress towards his/her prior level of function. Additional exercises will be introduced and as well as a comprehensive home exercise program upon discharge, if needed, ?to ensure carryover of functional gains achieved in the clinic. This treatment plan has been reviewed and agreement upon by the patient.
--- NOTE | 2024-06-13 08:07 | OPREHPOC ---
Outpatient Therapy Plan of Care This is a Multidisciplinary Plan of Care that may contain components documented by all disciplines (PT, OT, and ST.) PT Problem 1 PT Problem #1 Knowledge Deficit PT Goal 1 Goal / Goal Update 1. independent and compliant with HEP Target Visit 5 Progress Met PT Problem 2 PT Problem #2 Pain PT Goal 1 Goal / Goal Update 1. patient to report reduction of radicular symptoms to not passed the buttock Target Visit 16 Progress Not Met PT Goal 2 Goal / Goal Update 1. 1/10 pain or less in the R LE and R lower back 2. no R LE radicular symptoms Target Visit 16 Progress Not Met PT Problem 3 PT Problem #3 Impaired Strength PT Goal 1 Goal / Goal Update 1. 5/5 bilateral hip strength Target Visit 16 Progress Partially Met PT Problem 4 PT Problem #4 Impaired Flexibility PT Goal 1 Goal / Goal Update 1. 10 degrees or less tightness of the bilateral hamstrings. not met 2. mild or less tightness of the bilateral piriformis mm's. met 3. mild or less tightness of the hip flexors. met 4. mild or less tightness of the ITB bilat. met Target Visit 16 Progress Partially Met PT Problem 5 PT Problem #5 Impaired Functional Mobility PT Goal 1 Goal / Goal Update 1. no tenderness to palpation of the R buttock. not met 2. patient to stand and ambulate for 2 hours without increased pain/symptoms. met 3. patient to safely squat and lift 40lbs from floor to waist without increased symptoms. met Target Visit 16 Progress Partially Met
--- NOTE | 2024-06-13 08:07 | PTOPDC ---
Assessment and note entered by [facility], PT Evaluation Information Assessment Status Discharge ICD-10 Condition Codes (PT) Pain in low back M54.50,Pain in right hip M25.551, Pain in right knee M25.561 Other ICD-10 Condition Codes ( M78.604 PT) Onset 04/08/24 Subjective Information patient reports he is not feeling too bad today. patient reports he still gets symptoms down the R buttock. he reports it does take more activity to get him to the point of pain. he reports squats still bother him, and sitting on hard surfaces is the worst. he reports he has been compliant with his HEP at home. Reported Pain Level Pain Score 3: Self Report Assessment PT Clinical Summary mr. murray presents to skilled PT for his 16th skilled PT visit. he has had consistent pain levels over the last few weeks, and continues symptoms in the R buttock. in general he feels improved subjectively, and has made partial progress towards several goals in skilled PT. however, he has made no significant improvements to warrant continued skilled PT at this time. he will continue with HEP independent at this time. Plan of Care PT Services Indicated Yes
== END 2024-06-13 08:22 | disposition home or self-care (01) ==
LOC: CHSPT 10:18
PROVIDERS: Visit Provider Physician Assistant Surgical
DX: M54.50 Low back pain, unspecified (principal); M79.604 Pain in right leg
CPT/HCPCS: 97012; 97014; 97110; 97140; 97161; G0283